=== PATIENT | female | born 1990 | race Caucasian/White ===

== ENCOUNTER 2022-12-25 08:31 | Outpatient (CLI) | payer OTHER, SELFPAY ==
[2022-12-25 20:09] LABS: Basophils Percent Auto 0.5 % (0.2-1.2); Eosinophils Percent Auto 0.5 % (0-4.4); Hematocrit 41.1 % (37.0-47.0); Hemoglobin 13.4 g/dL (12.0-15.0); Immature Granulocyte Absolute 0.01 K/mm3 (0.00-0.031); Immature Granulocyte Percent A 0.2 % (0-0.5); Lymphocytes Absolute Auto 1.78 K/mm3 (0.9-3.2); Mean Corpuscular HGB Conc 32.6 g/dl (32-36); Mean Corpuscular Hemoglobin 29.6 pg (26-34); Mean Corpuscular Volume 90.9 fl (80-100); Mean Platelet Volume 10.5 fl (7.4-10.4); Monocytes Absolute Auto 0.5 K/mm3 (0.1-0.6); Monocytes Percent Auto 7.6 % (2.6-8.5); Neutrophils Absolute Auto 3.6 K/mm3 (1.3-6.7); Neutrophils Percent Auto 61.2 % (45.5-73.1); Platelet Count Result 240 k/mm3 (150-375); Red Blood Count 4.52 M/mm3 (4.2-5.4); Red Cell Distribution Width 12.9 % (11.5-14.5); White Blood Count 5.9 K/mm3 (4.5-10.0)
[2022-12-25 20:44] LABS: Alanine Aminotransferase 17 U/L (6-35); Albumin Level 4.5 g/dL (3.5-5.1); Alkaline Phosphatase 86 U/L (38-126); Anion Gap 7 mmol/L (8-16); Aspartate Amino Transferase 38 U/L (14-36); Bilirubin,Total 0.7 mg/dL (0.2-1.3); Blood Urea Nitrogen 14 mg/dL (7-17); Calcium 9.1 mg/dL (8.4-10.2); Carbon Dioxide 29 mmol/L (22-30); Chloride 104 mmol/L (98-107); Cholesterol 179 mg/dL (0-200); Estimated Glomerular Filt Rate > 60; Glucose 69 mg/dL (65-110); HDL Direct 48 mg/dL; Potassium 4.5 mmol/L (3.4-5.0); Sodium 140 mmol/L (137-145); Triglycerides 55 mg/dL (<150)
[2022-12-25 20:55] LABS: LDL Cholesterol Direct 91 mg/dL
== END 2022-12-25 08:32 | disposition home or self-care (01) ==
LOC: ANHGOSHLAB 08:33
PROVIDERS: PCP Internal Medicine; Visit Provider Nurse Practitioner
DX: R51.9 Headache, unspecified (principal)
CPT/HCPCS: 36415; 80053; 80061; 84443; 85025

== ENCOUNTER 2023-01-07 08:36 | Outpatient (CLI) | payer OTHER, SELFPAY ==
--- NOTE | ~2023-01-07 | MR_ITS ---
EXAMINATION: MR brain/brain stem wo/w con DATE: 01/07/2023 09:20 INDICATION: Worsening headaches. TECHNIQUE: Magnetic resonance imaging (MRI) of the brain and brainstem was performed without and with 15 mL MultiHance intravenous contrast. COMPARISON: None. FINDINGS: There is no intracranial hemorrhage, acute infarction, or abnormal intracranial mass lesion . The ventricles are normal in size. The mastoid air cells are normal. The paranasal sinuses are azam r. The orbits are normal. IMPRESSION: 1. Normal brain. Reviewed, dictated and finalized at location A. ORK OPERATIONS PROJECT MANAGER IMPRESSION: 1. Normal brain.
== END 2023-01-07 08:37 | disposition home or self-care (01) ==
PROVIDERS: PCP Internal Medicine; Visit Provider Nurse Practitioner
DX: R51.9 Headache, unspecified (principal)
CPT/HCPCS: 70553; A9577

== ENCOUNTER 2024-01-29 10:06 | Outpatient (CLI) | payer BC, OTHER, SELFPAY ==
--- NOTE | ~2024-01-29 | MMUS_ITS ---
EXAMINATION: MM diagnostic linda RT w viral, US breast RT limited HISTORY: Right breast inner quadrant lump for 2 months TECHNIQUE: ML, MLO and CC 3-D tomosynthesis images of the right breast were performed and synthetic 2 -D images were generated. CAD analysis was submitted and interpreted. High resolution targeted right breast ultrasound examination at area of clinical complaint was performed. COMPARISON: None BREAST PARENCHYMAL COMPOSITION: The breasts are heterogeneously dense, which may obscure small masses . FINDINGS: MAMMOGRAPHIC FINDINGS: No suspicious mass or architectural distortion, malignant calcification, skin thickening or retractio n is detected. ULTRASOUND: No focal mass or abnormal shadowing in the area of clinical complaint is detected. IMPRESSION: 1. No mammographic or sonographic evidence of malignancy 2. Routine annual mammographic screening beginning at age 40 is recommended unless breast symptoms or physical findings present earlier BI-RADS Category 1: Negative Reviewed, dictated and finalized at location A. RANCE VERIFICATION CLERK IMPRESSION: 1. No mammographic or sonographic evidence of malignancy 2. Routine annual mammographic screening beginning at age 40 is recommended unl ess breast symptoms or physical findings present earlier BI-RADS Category 1: Negative
== END 2024-01-29 10:07 | disposition home or self-care (01) ==
LOC: ANHIMG 10:08
PROVIDERS: PCP Internal Medicine; Visit Provider Nurse Practitioner
DX: N63.10 Unspecified lump in the right breast, unspecified quadrant (principal); R92.2 Inconclusive mammogram
CPT/HCPCS: 76642; 77061; 77065; G0279

== ENCOUNTER 2025-03-30 10:14 | Outpatient (CLI) | payer BC, SELFPAY ==
--- NOTE | ~2025-03-30 | XR_ITS ---
Cervical Spine: AP, lateral, open-mouth views Clinical History: Pain Findings: There is straightening of the normal cervical lordosis. The vertebral bodies and posterior elements appear intact. The intervertebral disc spaces are well maintained. Pre-vertebral soft tiss ues are unremarkable. Impression: Straightening of the normal cervical lordosis, otherwise unremarkable exam. Reviewed, dictated and finalized at location . Impression: Straightening of the normal cervical lordosis, otherwise unremarkable exam.
== END 2025-03-30 10:15 | disposition home or self-care (01) ==
PROVIDERS: PCP Nurse Practitioner; Visit Provider Nurse Practitioner
DX: M54.2 Cervicalgia (principal)
CPT/HCPCS: 72040

== ENCOUNTER 2025-05-31 10:12 | Outpatient (CLI) | payer BC, SELFPAY ==
--- OUTSIDE RECORDS SUMMARY | 2025-05-31 10:20 | XMS_ITS | Patient Health Record ---
Author Organization [facility] [employer] Address [address] [facility] [address] [place] [address] Care Team Providers Care Welder 2Nd Shift Name Role Phone Ariana Dodd Unavailable [phone] ChitraAdele manning Unavailable [phone] Allergies No Known Allergies Reason For Referral No Information Medications Medication SIG (Take, Route, Fr equency, Duration) Notes Start Date End Date Status Sertraline HCl 50 MG TAKE 1 TABLET BY [place] [facility] EVERY DAY; Duration: 90 Active Social History Tobacco Use: Social History Observation Description Date Details (start date - stop date) Never Smoker NA - NA Sex Assigned At : Social History Observation Description Sex Assigned At Female Tobacco Control (Standard) Question Answer Notes Tobacco use: Nonsmoker AUDIT-C (Standard) Question Answer Notes Did you have a drink contain ing alcohol in the past year? Yes How often did you have six o r more drinks on one occasion in the past year? Less than monthly (1 point) How many drinks did you have on a typical day when you were drinking in the past year? 1 or 2 drinks (0 point) How often did you have a dri nk containing alcohol in the past year? Monthly or less (1 point) Problems Problem Type SNOMED Code ICD Code Onset Dates Problem Status W/U Status Risk Notes Problem Generalized anxiety disorder (77364593) STEPHEN (generalized anxiety disorder) (F41.1) Active confirmed Problem Attention deficit hyperactivity disorder (692474171) ADHD (attention deficit hyperactivity disorder), combined type (F90.2) Active confirmed Encounters Encounter Location Date Provider Diagnosis [facility] [employer] [address] [facility] [address] [place] [address] [place] [address] 06/01/2024 Ariana Dodd STEPHEN (generalized anxiety disorder) F41.1 and ADHD (attention deficit hyperactivity disorder), combined type F90.2 [facility] [employer] [address] [facility] [address] [place] [address] 06/17/2024 Adele Vale STEPHEN (generalized anxiety disorder) F41.1 [facility] [address] [facility] [address] [place] [address] 07/04/[address] [facility] [place] [address] [facility] [address] [place] [address] 07/15/2024 Adele Vale STEPHEN (generalized anxiety disorder) F41.1 and ADHD (attention deficit hyperactivity disorder), combined type F90.2 [place] [address] [facility] [address] [place] [address] 07/15/2024 Arianaarnold Dodd STEPHEN (generalized anxiety disorder) F41.1 and ADHD (attention deficit hyperactivity disorder), combined type F90.2 [facility] [address] [facility] [address] [place] [address] 08/12/2024 Ariana Dodd [place] [address] [facility] [address] [place] [address] 08/12/2024 Ariana Dodd [facility] [address] [facility] [address] [place] [address] 01/23/2025 Ariana Dodd [facility] [address] [address] 05/31/2024 Ariana Dodd [facility] [address] [facility] [address] [place] [address] 12/05/2024 Ariana Dodd ADHD (attention deficit hyperactivity disorder), combined type F90.2 Assessments Encounter Date Diagnosis (ICD Code) Assessment Notes Treatment Notes Treatment Clinical Notes Section Notes 06/01/2024 STEPHEN (generalized anxiety disorder) (ICD-10 - F41.1) 12/05/2024 ADHD (attention deficit hyperactivity disorder), combined type (ICD-10 - F90.2) 06/01/2024 ADHD (attention deficit hyperactivity disorder), combined type (ICD-10 - F90.2) 06/17/2024 STEPHEN (generalized anxiety disorder) (ICD-10 - F41.1) Preferred name: Ellen Pronouns: she/her Sexual Orientation: straight Marital Status: , 12 years Living Arrangement: lives with and children Children: 3 children, 11, 10, and 7 Support System: , kids, mother and father-in law, siblings Highest Level of Education: completed college 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 Denied history of self-harm but later noted that she has a history of binge eating to feel pain and intense workouts to feel pain. Homicidal Ideation: Denied Access to Means (firearms, stockpiled medication, etc.): yes, locked away Chief Complaint: it was suggested to me. Anxiety and trauma Anxiety: doesn't stop, constant. Racing thoughts, ruminating thoughts. Panic attacks major panic attack only twice. Body feels numb and tingly. Irritable, shut down and internalize Depression: Denied major concerns. Anger/Aggression: Denied ADHD: difficulty focusing, restless, utilizes specific tasks to help with organizing, overstimulated easily, does not feel like she can multitask well, compares self to others. Difficulty transitioning back into her work if pulled away by a conversation. Always feeling like she needs to catch up. Obsessions/Compul sions: Denied Basilia: Denied Psychosis: Denied Sleep: it's always been really good. Average of 6 hours of sleep a night Appetite: Denied concerns. History of binge eating for therapy in itself, the pain of being overly full. Trauma: probably Did not disclose details other than stating she experienced childhood trauma and asked if a lot of people that experience anxiety have also experienced trauma. Appears to struggle with avoidance Substance Use (type, last use, amount, frequency, withdrawal symptoms): Denied Gambling/Other Addictive Behaviors: Denied ADLs (Hygiene, Chores, Cooking, Shopping): Denied concerns Interests/Skills/ Hobbies: working out, weightlifting I need to feel and completely drained. Taking kids places Strengths: being a mom, math, working out Limitations: trauma history, anxiety, hard on self. Goal(s) for Therapy: probably some methods to counteract the trauma from my childhood. I'm sure there will be things I get out of it that I wasn't expecting. Finding ways to understand how other people might view things. 07/15/2024 STEPHEN (generalized anxiety disorder) (ICD-10 - F41.1) 1. Anxiety: - Patient reports improvement in anxiety symptoms with current medication. - Patient struggles with remaining calm and managing irrational thoughts. - Plan: a. Continue current medication as prescribed. b. Encourage the practice of deep breathing techniques, such as 4-4-6 method and square breathing. c. Teach progressive muscle relaxation to help manage physical symptoms of anxiety. d. Encourage challenging irrational thoughts and practicing cognitive restructuring. e. Schedule follow-up appointment on August 12 to monitor progress and adjust treatment plan as needed. 2. Depression: - Patient reports a significant decrease in depressive symptoms. - Plan: a. Continue current medication as prescribed. b. Monitor for any changes in mood or depressive symptoms during follow-up appointments. 3. Family and interpersonal relationships: - Patient experiences difficulties in family dynamics and communication. - Patient struggles with setting boundaries and managing expectations. - Plan: a. Encourage the practice of radical acceptance and setting healthy boundaries with family members. b. Teach effective communication strategies, such as using I statements and assertiveness. c. Discuss the importance of self-care and maintaining personal well-being in the context of family relationships. d. Schedule follow-up appointment on August 12 to discuss progress and provide additional support as needed. 4. Workplace relationships and culture: - Patient is working on improving workplace culture and fostering supportive relationships. - Plan: a. Encourage open communication and sharing of personal experiences to promote a supportive work environment. b. Discuss strategies for promoting a positive workplace culture, such as acts of kindness and collaboration. c. Monitor progress and provide guidance during follow-up appointments as needed. 07/15/2024 ADHD (attention deficit hyperactivity disorder), combined type (ICD-10 - F90.2) 1. Anxiety: - Patient reports improvement in anxiety symptoms with current medication. - Patient struggles with remaining calm and managing irrational thoughts. - Plan: a. Continue current medication as prescribed. b. Encourage the practice of deep breathing techniques, such as 4-4-6 method and square breathing. c. Teach progressive muscle relaxation to help manage physical symptoms of anxiety. d. Encourage challenging irrational thoughts and practicing cognitive restructuring. e. Schedule follow-up appointment on August 12 to monitor progress and adjust treatment plan as needed. 2. Depression: - Patient reports a significant decrease in depressive symptoms. - Plan: a. Continue current medication as prescribed. b. Monitor for any changes in mood or depressive symptoms during follow-up appointments. 3. Family and interpersonal relationships: - Patient experiences difficulties in family dynamics and communication. - Patient struggles with setting boundaries and managing expectations. - Plan: a. Encourage the practice of radical acceptance and setting healthy boundaries with family members. b. Teach effective communication strategies, such as using I statements and assertiveness. c. Discuss the importance of self-care and maintaining personal well-being in the context of family relationships. d. Schedule follow-up appointment on August 12 to discuss progress and provide additional support as needed. 4. Workplace relationships and culture: - Patient is working on improving workplace culture and fostering supportive relationships. - Plan: a. Encourage open communication and sharing of personal experiences to promote a supportive work environment. b. Discuss strategies for promoting a positive workplace culture, such as acts of kindness and collaboration. c. Monitor progress and provide guidance during follow-up appointments as needed. 07/15/2024 STEPHEN (generalized anxiety disorder) (ICD-10 - F41.1) 07/15/2024 ADHD (attention deficit hyperactivity disorder), combined type (ICD-10 - F90.2) 06/01/2024 Other ADHD evaluation reviewed, overall not congruent with diagnosis, although rating scales and reported symptoms congruent with diagnosis. Had a few slightly impaired modalities of the DUSTIN-2. Start atomoxetine 25mg daily for two weeks, then 40mg daily. Patient educated on all medications including potential benefits, side effects, risks. Educated on proper dosing schedule and importance of compliance. 07/15/2024 Other Increase sertraline to 50mg daily. Continue atomoxetine 40mg daily Patient educated on all medications including potential benefits, side effects, risks. Educated on proper dosing schedule and importance of compliance. Continue counseling with Adele Plan Of Treatment Pending Test Test Name Order Date ADHD Testing 05/25/2024 Insurance Providers Payer Name Payer Address Payer Phone Subscriber Number Group Number Insured Name Patient Relationship to Insured Coverage Start Date Coverage End Date [facility] [address] [place] [address] [id number] RubenEllen Self - patient is the insured Medical (General) History Medical History History ICD Code abdominal aortic aneurysm: No atrial fibrillation: No chronic fatigue syndrome: No essential tremor: No hyperlipidemia: No hypertension: No Parkinson's disease: No restless leg syndrome: No stroke: No subdural hematoma: No type 1 diabetes mellitus: No type 2 diabetes mellitus: No vitamin B12 deficiency: No vitamin D deficiency: No Past Psychiatric History: Anxiety Disord er abdominal aortic aneurysm: Yes
--- OUTSIDE RECORDS SUMMARY | 2025-05-31 10:20 | XMS_ITS | Data Portability ---
[facility] Organization [facility] Address [address] [place] [address] Assessment No assessment recorded. Plan of Treatment Reminders Order Date Submit Date Provider Last Modified By Organization Details Last Modified Time Details Appointments None recorded. 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 Exposed to pos COVID-19 patient . [facility] 07/16/2020 @ [facility] 2019 020 [facility] (Lab), [address] [place], [address], 0 15:10:31 Referral None recorded. Procedures None recorded. Surgeries None recorded. Imaging None recorded. Medication Orders None recorded. Patient TargetsNo targets recorded. Patient Instructions Encounter Date Encounter Id Patient Instructions Last Modified By Organization Details Last Modified Time 07/13/2020 [id number] Reviewed the following recommendations: -Stay home and separate from others as much as possible. -Monitor your symptoms and seek medical attention for trouble breathing, persistent chest pain, confusion, or bluish lips or face. -Wear a mask if you must be around other people. -Wash your hands often for 20 seconds with soap and water and clean high-touch surfaces daily -You may discontinue home isolation if your symptoms are improving and it has been 10 days since symptoms started. 0/ cdysonspiller Not available 07/13/2020 14:48:32 Reason for Referral None Reported. Results Created Date Observation Date Name Description Value Unit Range Abnormal Flag Note LastModifiedBy Organization Detail LastModifiedTime 07/16/20 20 07/16/2020 SARS CoV 2 RNA (COVI D-19) , QL, certified medical assistant-P CR, respi rator y speci men sars - cov - 2 PCR NON DETECT ED mL Not Available [facility] (Lab) [address], [place], [address], 07/23/2020 15:10:30 07/16/20 20 07/16/2020 SARS CoV 2 RNA (COVI D-19) , QL, certified medical assistant-P CR, respi rator y speci men [email or web address] COMME NTS: A negat juana resul t does not precl ude SARS- CoV-2 infec tion and shoul d not be used as the sole basis for treat ment or other patie nt manag ement decis ions. Negat juana resul ts must be combi aimee with clini kevin obser vatio ns, patie nt histo ry, and epide miolo gical infor matio n Perfo rmanc e don cteri stics for the TaqPa th COVID -19 Combo , Real- time PCR Diagn ostic test have been deter mined by the [facility] cyndi mcclure and are incor porat ed as part of the Emerg ency Use Autho rizat ion. Not Available [facility] (Lab) [address], [place], [address], 07/23/2020 15:10:30 07/16/20 20 07/16/2020 SARS CoV 2 RNA (COVI D-19) , QL, certified medical assistant-P CR, respi rator y speci men [email or web address] Provi barrington and patie nt fact sheet s are avail able at: https ://ww w.fda .gov/ medic al-de vices /paulo gency -situ ation s-med ical- devi es/em ergen cy-us e-aut horiz ation s#cor onavi rus20 19 Not Available [facility] (Lab) [address], [place], [address], 07/23/2020 15:10:30 07/16/20 20 07/16/2020 SARS CoV 2 RNA (COVI D-19) , QL, certified medical assistant-P CR, respi rator y speci men [email or web address] Perfo rmed at: [facility] ion of Labor atori es [address] [place] [address] CLIA No. [id number] Not Available [facility] ([facility]) [address] [place], [address], 07/23/2020 15:10:30 Result Notes None recorded. Medical Equipment None Reported. Vitals None Recorded Social History None recorded. Functional Status None recorded. Mental Status None recorded. Family History Nothing Reported. Medical History No medical history recorded. Gynecological HistoryNo gynecological history recorded. Obstetrics History GPAL:G 0 P 0 0 0 0 Past Encounters Encounter ID Performer Location Encounter Start Date Encounter Closed Date Diagnosis/Indication Diagnosis SNOMED-CT Code Diagnosis ICD10 Code Diagnosis Note [id number] GENIE Oro [address] [place] [address] 07/13/2020 14:30:42 07/16/2020 09:51:09 Viral screening 012317182 Z11.59 D/w pt the current pandemic of COVID-19 and call for social isolation in order to blunt the curve and minimize risk and spread. Encouraged patient and family to take restrictio ns seriously. They have verbalized understand ing of such. Viral syndrome [id number] B34.9 Health Concerns Section Related Observation LastModified by Organization Detai ls LastModified Time None Recorded Concern Status LastModified by Organization Details LastModified Time None Recorded Advance Directives Directive None Recorded Payers Insurance Date Sequence Insurance Name Policy Number Policy Mccabe Covered Member ID Mccabe Member ID Guarantor Name 07/13/2020 1 [facility] - DOS PRIOR TO 2021 (MEDICAID REPLACEMENT - HMO) Ellen Miranda [id number] Ellen De León Notes Date Note Type Note Provider Name and Address Organization Details Recorded Time 07/13/2020 text/html COVID ScreeningReported bypatient.Onset/Durati on of fever:no fever Associated Symptoms:no cough; no shortness of breathCOVID-19 Symptoms March 2020Reported bypatient.COVID-19 Signs and Symptomscough resolved; fever resolved; shortness of breath resolved; chills resolved; repeated shaking with chills resolved; muscle pain resolved; headache resolved; sore throat resolved; loss of taste or smell resolved; vomiting or diarrhea resolved; fatigue resolved; anorexia resolved Contacts and Exposureclose contact with a confirmed or suspected case of COVID-19; close proximity with person with COVID-19 Associated Symptoms:no sputum production; no wheezing; no runny nose; no vomiting; no diarrhea; no body aches; no nausea; no change in mental status; no hypotension; no tachycardia 29 yo female ,spoke via phone with C/O, denies having any COVID-19 symptoms. Exposed to pos COVID-19 patient . ALKA Juarez NP Attn: Accounting,[address] [place], [address], [facility] 07/13/2020 14:49:27 OBGyn Episode No OBEpisode recorded.
--- OUTSIDE RECORDS SUMMARY | 2025-05-31 10:20 | XMS_ITS | Clinical Summary ---
Author Organization [facility] [address] [facility] Address [address] [place] [address] Care Team Providers Care Welder Tool And Die Name Role Phone Unavailable Primary Care Provider Unavailabl e Social History Tobacco Use Types Packs/Day Years Used Date Smoking Tobacco: Never Assessed Comments Unknown Sex and Gender Information Value Date Recorded Sex Assigned at Not on file Legal Sex Female 2:47 PM CDT Gender Identity Not on file Sexual Orientation Not on file Plan of Treatment Health Maintenance Due Date Last Done Comments DTAP/TDAP/TD VACCINES (1 - Tdap) 2010 HEPATITIS B VACCINES (1 of 3 - 19+ 3-dose series) 2010 HPV/Cotest (21-29) 2012 CERVICAL CANCER SCREENING 2021 HPV/Cotest (30-65) 2021 PAP SMEAR 2021 INFLUENZA VACCINE (#1) 2025 HPV VACCINES Aged Out No longer eligi ble based on patient's age to complete this topic
[2025-05-31 10:35] LABS: Hematocrit 41.2 % (37.0-47.0); Hemoglobin 13.7 g/dL (12.0-15.0); Immature Granulocyte Percent A 0.2 % (0-0.5); Lymphocytes Absolute Auto 2.12 K/mm3 (0.9-3.2); Mean Corpuscular HGB Conc 33.3 g/dl (32-36); Mean Corpuscular Hemoglobin 29.7 pg (26-34); Mean Corpuscular Volume 89.4 fl (80-100); Nucleated Red Blood Cells Absolute Auto 0.000 K/mm3 (0.0-0.012); Nucleated Red Blood Cells Perc 0.0 % (0.0-0.2); Platelet Count Result 230 k/mm3 (150-375); Red Blood Count 4.61 M/mm3 (4.2-5.4); White Blood Count 5.9 K/mm3 (4.5-10.0)
[2025-05-31 10:43] LABS: Alanine Aminotransferase 18 U/L (6-35); Albumin Level 5.0 g/dL (3.5-5.1); Alkaline Phosphatase 65 U/L (38-126); Anion Gap 8 mmol/L (4-12); Aspartate Amino Transferase 37 U/L (14-36); Bilirubin,Total 0.6 mg/dL (0.2-1.3); Blood Urea Nitrogen 19 mg/dL (7-17); Calcium 9.5 mg/dL (8.4-10.2); Carbon Dioxide 26 mmol/L (22-30); Chloride 103 mmol/L (98-107); Cholesterol 210 mg/dL (0-200); Estimated Glomerular Filt Rate > 60; Glucose 92 mg/dL (65-110); HDL Direct 72 mg/dL; Potassium 4.2 mmol/L (3.4-5.0); Sodium 137 mmol/L (137-145); Total Protein 8.5 g/dL (6.3-8.2); Triglycerides 65 mg/dL (<150)
[2025-05-31 11:14] LABS: Thyroid Stimulating Hormone 1.420 uIU/mL (0.465-4.680)
== END 2025-05-31 10:13 | disposition home or self-care (01) ==
LOC: ANHLAB 10:12
PROVIDERS: PCP Nurse Practitioner; Visit Provider Nurse Practitioner
DX: R51.9 Headache, unspecified (principal); F41.9 Anxiety disorder, unspecified; Z13.220 Encounter for screening for lipoid disorders; E55.9 Vitamin D deficiency, unspecified
CPT/HCPCS: 36415; 80053; 80061; 82306; 84443; 85025